=== PATIENT | male | born 1995 | race Caucasian/White ===

== ENCOUNTER 2018-07-04 14:36 | Emergency (ER) | payer OTHER ==
[~2018-07-04] VITALS: Ht 180.3 cm; Wt 81.6 kg
== END 2018-07-04 17:15 | disposition home or self-care (01) ==
LOC: ER 14:36
DX: L29.8 Other pruritus (principal); L53.8 Other specified erythematous conditions; T78.49XA Other allergy, initial encounter; X58.XXXA Exposure to other specified factors, initial encounter